=== PATIENT | female | born 1975 | race Caucasian/White ===

== ENCOUNTER → 2019-01-17 | Outpatient (CLI) | payer BC ==
[2014-06-22 10:28] VITALS: BP 123/61
--- NOTE | 2019-01-17 19:30 | RAD ---
Right lower extremity venous doppler ultrasound Indication: Right lower extremity pain and swelling Technique: Color Doppler, grayscale, and spectral waveform analysis is used to evaluate the right femoral and popliteal veins. Findings: No evidence of deep venous thrombosis. Normal response to augmentation, normal compressibility and normal phasicity is demonstrated. Visualized calf veins are patent. Impression: Negative for deep venous thrombosis Electronically signed by: Louis Mathis MD (01/17/2019 4:58 PM) [id number]
== END | disposition home or self-care (01) ==
LOC: US 16:22
PROVIDERS: ATTEND Internal Medicine
DX: M79.604 Pain in right leg (principal)
CPT/HCPCS: 93971